=== PATIENT | female | born 1930 | race Caucasian/White ===

== ENCOUNTER 2017-03-01 09:23 | Outpatient (CLI) | payer MEDICARE, OTHER ==
[2017-03-01 09:39] LABS: BASOPHILS % 1.2 (0.0-1.5); MEAN CORPUSCULAR HEMOGLOBIN 31.3 pg (28.0-34.0); MEAN CORPUSCULAR VOLUME 87.6 fl (80.0-100.0); MONOCYTES % 7.2 % (0.0-11.0); NEUTROPHILS # 2.3 # k/uL (1.4-7.7)
[2017-03-01 10:07] LABS: eGFR (African) > 60; eGFR (Non-African) > 60
== END 2017-03-02 12:30 ==
LOC: LAB 09:23
PROVIDERS: ATTEND Family Medicine
DX: E78.01 Familial hypercholesterolemia (principal); I10 Essential (primary) hypertension
CPT/HCPCS: 36415; 80053; 80061; 85025

== ENCOUNTER 2018-03-31 10:14 | Outpatient (CLI) | payer MEDICARE, OTHER ==
[2018-03-31 10:42] LABS: BASOPHILS % 0.7 (0.0-1.5); EOSINOPHILS % 1.7 % (0.0-6.8); MEAN CORPUSCULAR HEMOGLOBIN 31.9 pg (28.0-34.0); MEAN CORPUSCULAR VOLUME 89.2 fl (80.0-100.0); MONOCYTES % 6.4 % (0.0-11.0); NEUTROPHILS # 3.5 # k/uL (1.4-7.7)
[2018-03-31 10:57] LABS: eGFR (African) > 60; eGFR (Non-African) > 60
== END 2018-03-31 10:15 ==
LOC: LAB 10:14
PROVIDERS: ATTEND Family Medicine
DX: I10 Essential (primary) hypertension (principal); E78.01 Familial hypercholesterolemia
CPT/HCPCS: 36415; 80053; 80061; 85025

== ENCOUNTER 2019-03-16 10:37 | Outpatient (CLI) | payer MEDICARE, OTHER ==
[2019-03-16 10:52] LABS: BASOPHILS % 0.3 % (0.0-1.5); NEUTROPHILS # 4.1 # k/uL (1.4-7.7)
[2019-03-16 11:11] LABS: HDL 56 mg/dL (>40); eGFR (Non-African) > 60
== END 2019-03-16 10:40 ==
LOC: LAB 10:37
PROVIDERS: ATTEND Family Medicine
DX: I10 Essential (primary) hypertension (principal); E78.5 Hyperlipidemia, unspecified
CPT/HCPCS: 36415; 80053; 80061; 85025